=== PATIENT | female | born 1980 | race African-American/Black ===

== ENCOUNTER 2021-06-10 02:20 | Emergency (ER) | payer MEDICAID ==
[~2021-06-10] VITALS: Ht 170.2 cm; Wt 82.0 kg
[2021-06-10] MEDS ORDERED: ALBUTEROL (0.083%) 2.5MG/3ML NEB HHN STA (02:43)
[2021-06-10] MEDS ORDERED: IPRATROPIUM BROMIDE (0.02%) 0.5MG/2.5ML NEB HHN STA (02:43)
[2021-06-10] MEDS ORDERED: PREDNISONE 20MG TABLET PO STA (02:43)
[2021-06-10 05:24] VITALS: BP 132/80
== END 2021-06-10 05:26 | disposition home or self-care (01) ==
LOC: ER 02:20
DX: J45.909 Unspecified asthma, uncomplicated (principal); F17.210 Nicotine dependence, cigarettes, uncomplicated; Z88.0 Allergy status to penicillin; Z20.822 Contact with and (suspected) exposure to COVID-19
CPT/HCPCS: 71045; 87426; 93005; 94640; 99285; J7512; Z7610